=== PATIENT | male | born 1965 | race Caucasian/White ===

== ENCOUNTER 2017-03-19 11:06 | Emergency (ER) | payer SELFPAY ==
[~2017-03-19] VITALS: Ht 182.9 cm; Wt 87.0 kg
[~2017-03-19 11:06] MED LIST: HYDR-3533 PO; VIGA0.5D LEFT EYE
[2017-03-19 11:16] VITALS: BP 133/101; PULSE 92; RESP 18; O2SAT 98
--- NOTE | 2017-03-19 11:48 | PD ---
HPI Chief Complaint: Head Injury Time Seen by Provider: 11:16 Travel History International Travel<30 days: No Contact w/Intl Traveler<30days: No Traveled to known affect area: No History of Present Illness HPI This patient complains of head injury. Duration 1 hour. Severity is moderate. He was repairing a Bell bed when it fell down and struck him in the forehead. No LOC but he felt briefly dazed. He complains of headache of moderate severity. No neck pain. He takes no blood thinners. He has a laceration to the right forehead. No alleviating factors PFSH Past Medical History Medical History: Denies Significant Hx Diminished Hearing: No Immunizations Current: Yes Influenza Vaccination: No ?: Not Past Surgical History Surgical History: No Previous Surgery Social History Alcohol Use: Yes ("SOMETIMES") Tobacco Use: Yes (1 PPD) Substance Use: No Allergies-Medications (Allergen,Severity, Reaction): Coded Allergies: No Known Allergies (Verified , 03/19/17) Reported Meds & Prescriptions Reported Meds & Active Scripts Active No Active Prescriptions or Reported Medications Review of Systems General / Constitutional: No: Fever Eyes: No: Visual changes HENT: Positive: Headaches Cardiovascular: No: Chest Pain or Discomfort Respiratory: No: Shortness of Breath Gastrointestinal: No: Abdominal Pain Genitourinary: No: Dysuria Musculoskeletal: No: Pain Skin: No Rash Neurologic: Positive: Headache, No: Weakness Psychiatric: No: Depression Endocrine: No: Polydipsia Hematologic/Lymphatic: No: Easy Bruising Physical Exam Narrative GENERAL: Well-nourished, well-developed patient in no apparent distress. SKIN: Focused skin assessment reveals no rash and nodules. Skin is Warm and dry. HEAD: 3 cm laceration to the right upper forehead. Normocephalic. EYES: Pupils equal and round. No scleral icterus. No injection or drainage. ENT: No nasal bleeding or discharge. Mucous membranes pink and moist. NECK: Trachea midline. No JVD. No midline tenderness CARDIOVASCULAR: Regular rate and rhythm. No murmur appreciated. RESPIRATORY: No accessory muscle use. Clear to auscultation. Breath sounds equal bilaterally. GASTROINTESTINAL: Abdomen soft, non-tender, nondistended. Hepatic and splenic margins not palpable. MUSCULOSKELETAL: No obvious deformities. No clubbing. No cyanosis. No edema. NEUROLOGICAL: Awake and alert. No obvious cranial nerve deficits. Motor grossly within normal limits. Normal speech. PSYCHIATRIC: Appropriate mood and affect; insight and judgment normal. Data Data Last Documented VS Vital Signs Date Time Temp Pulse Resp B/P Pulse Ox O2 Delivery O2 Flow Rate FiO2 03/19/17 12:13 80 16 170/[address] Brain W/O Iv Contrast(Rout) (03/19/17 ) MDM Medical Decision Making Medical Screen Exam Complete: Yes Emergency Medical Condition: Yes Medical Record Reviewed: Yes Differential Diagnosis Intracranial hemorrhage, concussion, skull fracture Narrative Course I have reviewed the patient's electronic medical record. Patient is neurologically intact Brain CT is normal Procedure note: Patient gives verbal consent for laceration repair LACERATION LOCATION: Right upper forehead LENGTH: 3 cm NUMBER OF STITCHES/LEVI: Dermabond used REPAIR: The area of the laceration was cleaned and explored without evidence of foreign body or neurovascular injury. The wound was closed using Dermabond. This was a single layer repair. Patient tolerated the procedure well. Him and some minor postconcussive symptoms. I would expect gradual resolution. The patient was advised to follow up with their physician and return if they worsen. Diagnosis Primary Impression: Head injury due to trauma Qualified Code: S09.90XA - Head injury due to trauma, initial encounter Additional Impressions: Postconcussive syndrome Laceration of forehead without complication Qualified Code: S01.81XA - Laceration of forehead without complication, initial encounter Additional Instructions: The patient was advised to follow up with their physician and return if they worsen. Med/Other Pt SpecificInfo: Other Scripts No Active Prescriptions or Reported Meds Disposition: 01 DISCHARGE HOME Condition: Stable Ramos Almeida MD March 19, 2017 11:48
--- NOTE | 2017-03-19 12:05 | RADHPO ---
EXAM DATE/TIME: 03/19/2017 11:36 [facility] COMPARISON: No previous studies available for comparison. INDICATIONS : Head injury. Right frontal laceration. RADIATION DOSE: 61.05 CTDIvol (mGy) MEDICAL HISTORY : None SURGICAL HISTORY : Orthopedic surgery. ENCOUNTER: Initial ACUITY: 1 day PAIN SCALE: 4/10 LOCATION: Right frontal TECHNIQUE: Multiple contiguous axial images were obtained of the head. Using automated exposure control and adj ustment of the mA and/or kV according to patient size, radiation dose was kept as low as reasonably a chievable to obtain optimal diagnostic quality images. FINDINGS: CEREBRUM: The ventricles are normal for age. No evidence of midline shift, mass lesion, hemorrhage or acute in farction. No extra-axial fluid collections are seen. POSTERIOR FOSSA: The cerebellum and brainstem are intact. The 4th ventricle is midline. The cerebellopontine angle i s unremarkable. EXTRACRANIAL: The visualized portion of the orbits is intact. SKULL: The calvaria is intact. No evidence of skull fracture. CONCLUSION: Normal examination. Dameon Reyes Jr., MD on March 19, 2017 at 11:59 Board Certified Radiologist. This report was verified electronically.
[2017-03-19 12:13] VITALS: BP 170/100; PULSE 80; RESP 16; O2SAT 98
== END 2017-03-19 12:35 | disposition home or self-care (01) ==
LOC: PHED 11:06
DX: S01.81XA Laceration without foreign body of other part of head, initial encounter (principal); F07.81 Postconcussional syndrome; W20.8XXA Other cause of strike by thrown, projected or falling object, initial encounter; Y93.89 Activity, other specified
CPT/HCPCS: 12013; 70450

== ENCOUNTER 2018-03-12 10:55 | Emergency (ER) | payer SELFPAY ==
[~2018-03-12] VITALS: Ht 182.9 cm; Wt 89.3 kg
[2018-03-12 10:57] VITALS: BP 180/100; PULSE 99; RESP 16; TEMP 97.7; O2SAT 98
[2018-03-12] MEDS ORDERED: CLINDAMYCIN PHOS 600 MG/4 ML VIAL IM ONE (11:45)
[2018-03-12] MEDS ORDERED: CLIN300C5 PO (12:02)
--- NOTE | 2018-03-12 12:07 | PD ---
HPI Chief Complaint: Oral / Dental Pain or Problem Time Seen by Provider: 11:39 Travel History International Travel<30 days: No Contact w/Intl Traveler<30days: No Traveled to known affect area: No History of Present Illness HPI 52-year-old male presents emergency department for evaluation of right upper tooth pain that has been persistent for 2-3 days. Patient states that this pain started Sunday. Says he woke up today and his right face was swollen and decided to come to the emergency department fro evaluation. Patient states that he went to [facility] and he was due for multiple tooth removals however , for financial reason he has been able to do so. Denies blurred vision or visual changes. Says his pain is mild to moderate in severity, nonradiating. Says this appointment was 2 months ago. Patient denies fevers or chills. He has no history of tooth abscesses however, he believes this may be one. Patient admits to an abnormal taste in his mouth for the last couple days as well. Says he has history of hypertension. PFSH Past Medical History Cardiovascular Problems: Yes (HTN) Diminished Hearing: No Immunizations Current: Yes Tetanus Vaccination: < 5 Years Social History Alcohol Use: Yes ("SOMETIMES") Tobacco Use: Yes (1 PPD) Substance Use: No Allergies-Medications (Allergen,Severity, Reaction): Coded Allergies: No Known Allergies (Verified Adverse Reaction, Unknown, 03/12/18) Reported Meds & Prescriptions Reported Meds & Active Scripts Active Clindamycin (Clindamycin HCl) 300 Mg Cap 300 Mg PO Q6H 7 Days Review of Systems Except as stated in HPI: all other systems reviewed are Neg Physical Exam Narrative GENERAL: Well-nourished, well-developed patient. SKIN: Focused skin assessment warm/dry. HEAD: Normocephalic. EYES: No scleral icterus. No injection or drainage. EOMI, PERRLA. No ptosis, no proptosis MOUTH: Mucous membranes moist, no lesions, tongue appear normal. Right upper dentition-area of concern is eroded about the second bicuspid, no fluctuance of the area. No obvious expression of fluid. Tenderness palpation of the right maxillary sinus, some edema noted. No erythema. NECK: Supple, trachea midline. No JVD or lymphadenopathy. CARDIOVASCULAR: Regular rate and rhythm without murmurs, gallops, or rubs. RESPIRATORY: Breath sounds equal bilaterally. No accessory muscle use. GASTROINTESTINAL: Abdomen soft, non-tender, nondistended. MUSCULOSKELETAL: No cyanosis, or edema. BACK: Nontender without obvious deformity. No CVA tenderness. Data Data Last Documented VS Vital Signs Date Time Temp Pulse Resp B/P (MAP) Pulse Ox O2 Delivery O2 Flow Rate FiO2 03/12/18 10:57 97.7 99 16 180/100 (126) 98 Orders Orders Clindamycin Inj (Cleocin Inj) (03/12/18 11:45) Ed Discharge Order (03/12/18 12:10) Acetaminophen (Tylenol) (03/12/18 12:30) [facility] Medical Decision Making Medical Screen Exam Complete: Yes Emergency Medical Condition: Yes Differential Diagnosis Tooth abscess, dental infection, poor dentition Narrative Course 52-year-old male presents emergency department for evaluation of a possible infection of the right upper bicuspid. Patient states that he woke up with swelling today decided to come to the emergency department for evaluation. Patient did see a dentist couple months ago however, has been unable to follow- up due to financial reasons. Vital signs are stable. Based on history and physical, will prescribe clindamycin. There is no area of fluctuance of gingiva the on examination today. Clindamycin 600 mg administered emergency department. Tylenol for pain. Advised that this may produce diarrhea and strongly advised that he take a probiotic after completion of this antibiotic. Strongly advised him to follow-up with the dentist and primary care physician for further evaluation. I do not believe any further imaging is necessary today however, if he returns or if the infection worsens or persists he should obtain an imaging study for further evaluation. Return to emergency room for worsening or persistent symptoms. Diagnosis Primary Impression: Tooth abscess Referrals: Dentist Primary Care Physician Additional Instructions: You may use salt water gargles for your mouth. Take all medications as prescribed. This medication may produce diarrhea. I recommend you take probiotics after you are finished with clindamycin. Follow-up with the dentist as soon as possible. If your symptoms persist or worsen return to the emergency department. Scripts Clindamycin (Clindamycin) 300 Mg Cap 300 MG PO Q6H for Infection for 7 Days, #28 CAP 0 Refills Prov: Darío Morales MD 03/12/18 Disposition: 01 DISCHARGE HOME Condition: Stable Landy Connor Mar 12, 2018 12:07
[2018-03-12] MEDS ORDERED: ACETAMINOPHEN 500 MG CPLT PO ONE (12:30)
== END 2018-03-12 12:41 | disposition home or self-care (01) ==
LOC: PHED 10:55 → PHEFT 12:41
DX: K04.7 Periapical abscess without sinus (principal); F17.200 Nicotine dependence, unspecified, uncomplicated
CPT/HCPCS: 96372